=== PATIENT | male | born 1990 | race Caucasian/White ===

== ENCOUNTER 2017-05-16 16:04 | Emergency (ER) | payer SELFPAY ==
[2017-05-16 16:50] VITALS: BP 105/67
--- NOTE | 2017-05-16 17:07 | ER Document Report ---
ED Hand/Wrist Injury - General Chief Complaint: Thumb Injury Stated Complaint: LEFT THUMB INJURY Time Seen by Provider: 05/16/17 16:57 Notes: 26 yo male cute tip of left thumb with hook knife just prior to arrival. bleeding is controlled. tetnus is UTD. last tetnus 4 yrs ago. no tendon damage. no nail damage TRAVEL OUTSIDE OF THE [place] IN LAST 30 DAYS: No - HPI Injury to: Thumb - left Onset: Just prior to arrival Where: Work Quality of pain: No pain - Related Data Allergies/Adverse Reactions: No Known Allergies Allergy (Verified 05/16/17 16:42) Past Medical History - General Information source: Patient - Social History Smoking Status: Current Every Day Smoker Frequency of alcohol use: None Drug Abuse: None Lives with: Family Family History: None, Malignancy Patient has suicidal ideation: No Patient has homicidal ideation: No - Medical History Medical History: Negative Renal/ Medical History: Denies: Hx Peritoneal Dialysis Skin Medical History: Reports Hx Cellulitis, Reports Hx MRSA Past Surgical History: Reports: Hx Appendectomy - Immunizations Immunizations up to date: Yes Hx Diphtheria, Pertussis, Tetanus Vaccination: Yes Review of Systems - Review of Systems Constitutional: No symptoms reported EENT: No symptoms reported Cardiovascular: No symptoms reported Respiratory: No symptoms reported Gastrointestinal: No symptoms reported Genitourinary: No symptoms reported Male Genitourinary: No symptoms reported Musculoskeletal: No symptoms reported Skin: See HPI Hematologic/Lymphatic: No symptoms reported Neurological/Psychological: No symptoms reported Physical Exam - Vital signs Vitals: Temp Pulse Resp BP Pulse Ox 98.0 F 73 16 105/67 100 05/16/17 16:44 05/16/17 16:44 05/16/17 16:44 05/16/17 16:44 05/16/17 16:44 Interpretation: Normal - General General appearance: Appears well, Alert - HEENT Head: Normocephalic, Atraumatic Eyes: Normal Pupils: PERRL - Respiratory Respiratory status: No respiratory distress Chest status: Nontender Breath sounds: Normal Chest palpation: Normal - Cardiovascular Rhythm: Regular Heart sounds: Normal auscultation Murmur: No - Abdominal Inspection: Normal Distension: No distension Bowel sounds: Normal Tenderness: Nontender Organomegaly: No organomegaly - Back Back: Normal, Nontender - Extremities General upper extremity: Normal inspection, Nontender, Normal color, Normal ROM , Normal temperature General lower extremity: Normal inspection, Nontender, Normal color, Normal ROM , Normal temperature, Normal weight bearing. No: Jose's sign - Neurological Neuro grossly intact: Yes Cognition: Normal Orientation: AAOx4 [place] Coma Scale Eye Opening: Spontaneous [place] Coma Scale Verbal: Oriented [place] Coma Scale Motor: Obeys Commands [place] Coma Scale Total: 15 Speech: Normal Motor strength normal: LUE, RUE, LLE, RLE Sensory: Normal - Psychological Associated symptoms: Normal affect, Normal mood - Skin Skin Temperature: Warm Skin Moisture: Dry Skin Color: Normal Skin irregularity: Laceration Course - Vital Signs Vital signs: Temp Pulse Resp BP Pulse Ox 98.0 F 73 16 105/67 100 05/16/17 16:44 05/16/17 16:44 05/16/17 16:44 05/16/17 16:44 05/16/17 16:44 Procedures - Immobilization left thumb Immobilizer type: Finger protection Performed by: PCT Post-Proc Neuro Vasc Exam: Normal Alignment checked and good: Yes - Laceration/Wound Repair left thumb Wound length (cm): 2 Wound's Depth, Shape: Flap Wound explored: Clean Wound Debrided: Minimal Wound Repaired With: Steri-strips, Dermabond Discharge - Discharge Clinical Impression: Laceration of left thumb Qualifiers: Encounter type: initial encounter Damage to nail status: without damage Foreign body presence: without foreign body Qualified Code(s): S61.012A - Laceration without foreign body of left thumb without damage to nail, initial encounter Condition: Stable Disposition: HOME, SELF-CARE Instructions: Skin Adhesive Closure ([facility]), Care of Steri-Strip Closure ([facility]) Additional Instructions: keep wound clean and dry dermabond and steri strips will peel off in 5-7 days watch for s/s infection wear thumb cap splint for comfort and protection
[2017-05-16] MEDS ORDERED: HYDROCODONE/ACETAMINOPHEN 5-325 MG TABLET PO ONE (17:36)
== END 2017-05-16 17:46 | disposition home or self-care (01) ==
LOC: ER 16:04
DX: S61.012A Laceration without foreign body of left thumb without damage to nail, initial encounter (principal); W26.0XXA Contact with knife, initial encounter; Y99.0 Civilian activity done for income or pay; F17.200 Nicotine dependence, unspecified, uncomplicated; Z86.14 Personal history of Methicillin resistant Staphylococcus aureus infection
CPT/HCPCS: 99282

== ENCOUNTER 2017-06-17 19:32 | Emergency (ER) | payer SELFPAY ==
[2017-06-17] MEDS ORDERED: DIPH/PERTUSS(ACELL)/TETANUS VAC/PF 0.5 ML SYR (>=10YO) IM ONE (19:49)
[2017-06-17] MEDS ORDERED: LIDOCAINE 1% INJ-PF (10 MG/ML) 30 ML SDV INJ ONE (19:49)
--- NOTE | 2017-06-17 19:51 | ER Document Report ---
ED General - General Chief Complaint: Laceration Stated Complaint: FINGER LACERATION Time Seen by Provider: 06/17/17 19:38 Mode of Arrival: Ambulatory Information source: Patient Notes: 26-year-old male presents with complaints of laceration and second digit on the lateral aspect with a new razor blade. Tetanus not up-to-date TRAVEL OUTSIDE OF THE [place] IN LAST 30 DAYS: No - HPI Onset: Just prior to arrival Onset/Duration: Sudden Quality of pain: Sharp Severity: Mild Pain Level: 1 Associated symptoms: None Exacerbated by: Movement Relieved by: Denies Similar symptoms previously: Yes Recently seen / treated by doctor: No - Related Data Allergies/Adverse Reactions: No Known Allergies Allergy (Verified 06/17/17 19:42) Past Medical History - Social History Smoking Status: Current Every Day Smoker Cigarette use (# per day): Yes Chew tobacco use (# tins/day): No Smoking Education Provided: No Family History: None, Malignancy Patient has suicidal ideation: No Patient has homicidal ideation: No Renal/ Medical History: Denies: Hx Peritoneal Dialysis Skin Medical History: Reports Hx Cellulitis, Reports Hx MRSA Past Surgical History: Reports: Hx Appendectomy - Immunizations Immunizations up to date: Yes Hx Diphtheria, Pertussis, Tetanus Vaccination: Yes Review of Systems - Review of Systems Notes: REVIEW OF SYSTEMS: CONSTITUTIONAL : Denies fever, chills, or sweats. Denies recent illness. EENT: Denies eye, ear, throat, or mouth pain or symptoms. Denies nasal or sinus congestion or discharge. Denies throat, tongue, or mouth swelling or difficulty swallowing. CARDIOVASCULAR: Denies chest pain. Denies palpitations or racing or irregular heart beat. Denies ankle edema. RESPIRATORY: Denies cough, cold, or chest congestion. Denies shortness of breath, difficulty breathing, or wheezing. GASTROINTESTINAL: Denies abdominal pain or distention. Denies nausea, vomiting , or diarrhea. Denies blood in vomitus, stools, or per rectum. Denies black, tarry stools. Denies constipation. GENITOURINARY: Denies difficulty urinating, painful urination, burning, frequency, blood in urine, or discharge. MUSCULOSKELETAL: Denies back or neck pain or stiffness. Denies joint pain or swelling. SKIN: Admits to finger laceration HEMATOLOGIC : Denies easy bruising or bleeding. LYMPHATIC: Denies swollen, enlarged glands. NEUROLOGICAL: Denies confusion or altered mental status. Denies passing out or loss of consciousness. Denies dizziness or lightheadedness. Denies headache. Denies weakness or paralysis or loss of use of either side. Denies problems with gait or speech. Denies sensory loss, numbness, or tingling. Denies seizures. PSYCHIATRIC: Denies anxiety or stress. Denies depression, suicidal ideation, or homicidal ideation. ALL OTHER SYSTEMS REVIEWED AND NEGATIVE. Dictation was performed using [employer] voice recognition software PHYSICAL EXAMINATION: GENERAL: Well-appearing, well-nourished and in no acute distress. HEAD: Atraumatic, normocephalic. EYES: Pupils equal round and reactive to light, extraocular movements intact, sclera anicteric, conjunctiva are normal. ENT: Nares patent, oropharynx clear without exudates. Moist mucous membranes. NECK: Normal range of motion, supple without lymphadenopathy LUNGS: Breath sounds clear to auscultation bilaterally and equal. No wheezes rales or rhonchi. HEART: Regular rate and rhythm without murmurs ABDOMEN: Soft, nontender, nondistended abdomen. No guarding, no rebound. No masses appreciated. Musculoskeletal: Normal range of motion, no pitting or edema. No cyanosis. NEUROLOGICAL: Cranial nerves grossly intact. Normal speech, normal gait. Normal sensory, motor exams PSYCH: Normal mood, normal affect. SKIN: 6 cm laceration of second digit left hand lateral aspect with no involvement of joint space there is no tendon involvement full range of motion of the finger good sensation with tenderness at the distal aspect there was a small venous bleed noted, good cap refill Physical Exam - Vital signs Vitals: Temp Pulse Resp BP Pulse Ox 97.7 F 72 18 126/77 H 100 06/17/17 19:37 06/17/17 19:37 06/17/17 19:37 06/17/17 19:37 06/17/17 19:37 Course - Re-evaluation Re-evalutation: 06/17/17 20:45 After a digital nerve block was performed area was explored small venous bleed was noted I placed 6 sutures with no complications after cleaning extensively. A splint was placed very strict return precautions have been provided as well as antibiotics and tetanus update After performing a Medical Screening Examination, I estimate there is LOW risk for OPEN FRACTURE, COMPARTMENT SYNDROME, TENDON RUPTURE, ACUTE NEUROVASCULAR INJURY, or RETAINED FOREIGN BODY, thus I consider the discharge disposition reasonable. Also, there is no evidence or peritonitis, sepsis, or toxicity. I have reevaluated this patient multiple times and no significant life threatening changes are noted. The patient and I have discussed the diagnosis and risks, and we agree with discharging home with close follow-up with the understanding that symptoms and presentations can change. We also discussed returning to the Emergency Department immediately if new or worsening symptoms occur. We have discussed the symptoms which are most concerning (e.g., changing or worsening pain, fever, numbness, weakness, cool or painful digits) that necessitate immediate return. - Vital Signs Vital signs: Temp Pulse Resp BP Pulse Ox 97.7 F 72 18 126/77 H 100 06/17/17 19:37 06/17/17 19:37 06/17/17 19:37 06/17/17 19:37 06/17/17 19:37 Procedures - Laceration/Wound Repair Left Hand 2nd digit Time completed: 20:45 Wound length (cm): 6 Wound's Depth, Shape: Into muscle, Irregular, Flap, Stellate Laceration pre-procedure: Sterile PPE donned, Sterile drapes applied, Shur- Clens applied Anesthetic type: 1% Lidocaine Volume Anesthetic (mLs): 10 Wound explored: Clean, No foreign body removed Irrigated w/ Saline (mLs): 2,000 Wound Debrided: Moderate Wound Repaired With: Sutures Suture Size/Type: 5:0, Ethilon Number of Sutures: 6 Layer Closure?: No Post-procedure wound care: Sterile dressing applied, Splint applied Post-procedure NV exam normal: Yes Complications: No - Additional Procedures digital nerve block Time performed: 20:34 - using 10 cc of lido without epi with complete resolution Discharge - Discharge Clinical Impression: Finger laceration Qualifiers: Encounter type: initial encounter Finger: index finger Damage to nail status: without damage Foreign body presence: without foreign body Laterality: right Qualified Code(s): S61.210A - Laceration without foreign body of right index finger without damage to nail, initial encounter Condition: Stable Disposition: HOME, SELF-CARE Instructions: Laceration Care ([facility]), Prophylactic Antibiotic ([facility]), Soap Cleansing ([facility]), Tetanus Immunization Given ([facility]) Prescriptions: Cephalexin Monohydrate [Keflex 500 mg Capsule] 500 mg PO Q6H 10 Days capsule Hydrocodone/Acetaminophen [[place] 5-325 mg Tablet] 1 tab PO Q6 #10 tablet Referrals: ABUNDIO PARIKH DO [ACTIVE STAFF] - Follow up in 1 week
[2017-06-17 21:10] VITALS: BP 113/68
== END 2017-06-17 21:09 | disposition home or self-care (01) ==
LOC: ER 19:32
PROC: 0HQGXZZ Repair Left Hand Skin, External Approach (ICD-10-PCS; principal; 2017-06-17)
DX: S61.211A Laceration without foreign body of left index finger without damage to nail, initial encounter (principal); W45.8XXA Other foreign body or object entering through skin, initial encounter; F17.210 Nicotine dependence, cigarettes, uncomplicated; Z23 Encounter for immunization; Z86.14 Personal history of Methicillin resistant Staphylococcus aureus infection
CPT/HCPCS: 99283; 90471; 90715; 12002; J3490

== ENCOUNTER 2017-08-12 17:15 | Emergency (ER) | payer SELFPAY ==
[2017-08-12] MEDS ORDERED: HYDROCODONE/ACETAMINOPHEN 5-325 MG TABLET PO ONE (18:58)
--- NOTE | 2017-08-12 19:04 | ER Document Report ---
ED Extremity Problem, Lower - General Chief Complaint: Foot Pain Stated Complaint: FEET PAIN Time Seen by Provider: 08/12/17 18:47 Mode of Arrival: Ambulatory Information source: Patient, Relative Notes: Patient is a 27-year-old male comes emergency room with his complaining of bilateral feet pain. 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 He states he is tried Gold Domínguez powder without any resolve he has tried changing shoes again with no resolved. Patient states that he gets his body he escape through his feet more than anywhere else. indicates the patient sleeps with socks on at night as well. He does admit to having very wet environment that he works in. TRAVEL OUTSIDE OF THE [place] IN LAST 30 DAYS: No - HPI Patient complains to provider of: Altered sensation, Pain Location: Foot - Bilat Where: Home, Work Onset/Duration: Gradual, Persistent, Worse Quality of pain: Burning, Throbbing Severity: Moderate Pain Level: 3 Context: Prolonged pressure on ext, Other - sweat and stay wet in shoes/boots Relieved by: Rest Notes: As stated patient works costruction and feet stay wet - Related Data Allergies/Adverse Reactions: No Known Allergies Allergy (Verified 06/17/17 19:42) Past Medical History - General Information source: Patient, Relative - Social History Smoking Status: Unknown if Ever Smoked Cigarette use (# per day): No Chew tobacco use (# tins/day): No Smoking Education Provided: No Frequency of alcohol use: Rare Drug Abuse: None 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 with: Family Family History: Reviewed & Not Pertinent, Malignancy Patient has suicidal ideation: No Patient has homicidal ideation: No Renal/ Medical History: Denies: Hx Peritoneal Dialysis Skin Medical History: Reports Hx Cellulitis, Reports Hx MRSA Past Surgical History: Reports: Hx Appendectomy - Immunizations Immunizations up to date: Yes Hx Diphtheria, Pertussis, Tetanus Vaccination: Yes Review of Systems - Review of Systems Constitutional: No symptoms reported EENT: No symptoms reported Cardiovascular: No symptoms reported Respiratory: No symptoms reported Gastrointestinal: No symptoms reported Genitourinary: No symptoms reported Male Genitourinary: No symptoms reported Musculoskeletal: No symptoms reported Skin: Change in color Hematologic/Lymphatic: No symptoms reported Neurological/Psychological: No symptoms reported -: Yes All other systems reviewed and negative Physical Exam - Vital signs Vitals: Temp Pulse Resp BP Pulse Ox 98.4 F 62 18 127/72 H 100 08/12/17 17:19 08/12/17 17:19 08/12/17 17:19 08/12/17 17:19 08/12/17 17:19 Interpretation: Normal - General General appearance: Other - Uncomfortable - Respiratory Respiratory status: No respiratory distress Chest status: Nontender Breath sounds: Normal. No: Decreased air movement, Nonproductive cough, Productive cough, Rales, Rhonchi, Stridor, Wheezing, Other - Cardiovascular Rhythm: Regular Heart sounds: Normal auscultation Murmur: No - Extremities General lower extremity: Tender, Normal ROM, Normal weight bearing Foot: Other - Examination patient's feet show them to be raw in appearance. There is a discoloration of the thick skin/callus of the heel and ball of the foot towards transparent kind of presentation then there is a severe deep and reddened area that is very painful to touch that has a distinct smell to it of the presentation of athlete's foot/fungal infection/trench foot. Course - Vital Signs Vital signs: Temp Pulse Resp BP Pulse Ox 97.3 F 70 18 125/72 99 08/12/17 19:36 08/12/17 19:36 08/12/17 19:36 08/12/17 19:36 08/12/17 19:36 - Transfer of Care Notes: 08/12/17 19:[address] Copeland also reviewed patient's feet and agrees that this is a fungal kind of a presentation a athlete's foot presentation. This is as stated athlete 's foot at its worst. Dr. Copeland impressed upon the patient that he must keep his feet airing out and change of dry socks and we could treat it with some powders or creams and a antibiotic and pain medication. But he also told him that if he does not get these open to air then nothing is going to work. Discharge - Discharge Clinical Impression: Athletes foot Qualifiers: Laterality: bilateral Qualified Code(s): B35.3 - Tinea pedis Condition: Good Disposition: HOME, SELF-CARE Instructions: Ringworm (Tinea Corporis) ([facility]) Additional Instructions: Highly important that he not wear the same shoes day in and day out. Get use of a couple different pair shoes alternate them about every 3-4 days. This allows that they dry out equally. Change your socks 2-3 times a day. Let your feet air out as much as possible. When not at work barefoot with the feet propped up airing out. This time the best medications for this are over-the- counter Lamisil cream/sprays/antifungal powders that you can buy. I will do some pain medication for the discomfort return to ER for any concerns or problems. Should the discomfort continue on you will need to see a associate dentist. He may contact his primary care provider to see who they recommend in your area. You can get a can of either Lamisil spray or anti fungal powders over-the- counter at any other pharmacies. Use as directed. Should you have any concerns or problems return to ER for a recheck. Highly suggest though that you do follow-up with a associate dentist for probably long-term treatment. Prescriptions: Hydrocodone/Acetaminophen [[place] 7.5-325 Tablet] 1 each PO Q6 #20 tablet Forms: Elevated Blood Pressure, Return to Work
[2017-08-12 19:39] VITALS: BP 125/72
== END 2017-08-12 19:36 | disposition home or self-care (01) ==
LOC: ER 17:15
DX: B35.3 Tinea pedis (principal); Z86.14 Personal history of Methicillin resistant Staphylococcus aureus infection
CPT/HCPCS: 99283

== ENCOUNTER 2018-04-02 06:22 | Emergency (ER) | payer SELFPAY ==
[2018-04-02 06:42] VITALS: BP 127/71
--- NOTE | 2018-04-02 07:18 | ER Document Report ---
ED Extremity Problem, Lower - General Chief Complaint: Foot Pain Stated Complaint: FOOT PAIN Time Seen by Provider: 04/02/18 07:15 Mode of Arrival: Ambulatory Information source: Patient Notes: Patient is a 27-year-old male who presents to the ER today for bilateral foot pain and rash times approximately 3 days. Patient states that he has been seen for this previously and was diagnosed with a "fungal infection." Patient states that he has been using fungal [id number] cream that has not been helping as well as foot powder that has not been helping. Patient works outside all day long and is on his feet all the time, wears tennis shoes and tall black socks. Patient states he is not able to change the shoes and socks daily until he goes home. Patient states he is at least working for 12 hours at a time. He denies any drainage from the rash. TRAVEL OUTSIDE OF THE [place] IN LAST 30 DAYS: No - Related Data Allergies/Adverse Reactions: No Known Allergies Allergy (Verified 04/02/18 07:26) Past Medical History - General Information source: Patient - Social History Smoking Status: Unknown if Ever Smoked Family History: Reviewed & Not Pertinent, Malignancy Renal/ Medical History: Denies: Hx Peritoneal Dialysis Skin Medical History: Reports Hx Cellulitis, Reports Hx MRSA Past Surgical History: Reports: Hx Appendectomy - Immunizations Immunizations up to date: Yes Hx Diphtheria, Pertussis, Tetanus Vaccination: Yes Review of Systems - Review of Systems Constitutional: No symptoms reported EENT: No symptoms reported Cardiovascular: No symptoms reported Respiratory: No symptoms reported Gastrointestinal: No symptoms reported Genitourinary: No symptoms reported Male Genitourinary: No symptoms reported Musculoskeletal: No symptoms reported Skin: See HPI Hematologic/Lymphatic: No symptoms reported Neurological/Psychological: No symptoms reported Physical Exam - Vital signs Vitals: Temp Pulse Resp BP Pulse Ox 98.6 F 83 16 127/71 H 98 04/02/18 06:39 04/02/18 06:39 04/02/18 06:39 04/02/18 06:39 04/02/18 06:39 - Notes Notes: PHYSICAL EXAMINATION: GENERAL: Well-appearing and in no acute distress. HEAD: Atraumatic, normocephalic. EYES: Pupils equal round and reactive to light, extraocular movements intact, sclera anicteric, conjunctiva are normal. NECK: Normal range of motion, supple without lymphadenopathy LUNGS: CTAB and equal. No wheezes rales or rhonchi. HEART: Regular rate and rhythm without murmurs EXTREMITIES: Normal range of motion, no pitting edema. No cyanosis. NEUROLOGICAL: Cranial nerves grossly intact. Normal sensory/motor exams. PSYCH: Normal mood, normal affect. SKIN: Warm, Dry, normal turgor, bilateral toes to both feet with erythema and patches, wet skin, moist Course - Vital Signs Vital signs: Temp Pulse Resp BP Pulse Ox 98.6 F 83 16 127/71 H 98 04/02/18 06:39 04/02/18 06:39 04/02/18 06:39 04/02/18 06:39 04/02/18 06:39 Discharge - Discharge Clinical Impression: Athletes foot Qualifiers: Laterality: bilateral Qualified Code(s): B35.3 - Tinea pedis Condition: Stable Disposition: HOME, SELF-CARE Instructions: Athletes Foot ([facility]) Additional Instructions: Use GOLD MOTA athlete's foot powder to keep feet dry. Return immediately for any new or worsening symptoms. Follow up with primary care provider, call tomorrow to make followup appointment. You are going to have to buy better shoes that are more breathable and preferably White Socks, specifically if they say that they are breathable as well. Prescriptions: Clotrimazole 45 gm TP BID #2 cream..g. Forms: Return to Work
== END 2018-04-02 07:25 | disposition home or self-care (01) ==
LOC: ER 06:22
DX: B35.3 Tinea pedis (principal); Z86.14 Personal history of Methicillin resistant Staphylococcus aureus infection
CPT/HCPCS: 99283

== ENCOUNTER 2019-05-15 01:45 | Emergency (ER) | payer SELFPAY ==
--- NOTE | 2019-05-15 02:26 | ER Document Report ---
ED Substance Abuse / Acc. OD - General Mode of Arrival: Wheelchair Information source: Patient, Relative TRAVEL OUTSIDE OF THE [place] IN LAST 30 DAYS: No <CATRINA REARDON - Last Filed: 05/15/19 04:19> <RADHASHWETA - Last Filed: 05/16/19 02:10> - General Chief Complaint: Possible Overdose Stated Complaint: POSSIBLE OVERDOSE Time Seen by Provider: 05/15/19 02:06 Notes: This 28-year-old male patient brought to emergency room for excessive drowsiness after taking some Xanax he purchased off the street. By history he takes Xanax about 2 times per week. He was feeling anxious and bought a 2 mg Xanax tablet. He took one half of the tablet about 1 AM, got very drowsy about 15 minutes later. Reportedly did not take any other medications. He is on Suboxone since September 2018 for heroin addiction, but has not taken any in the past 2 days. He has been opiate clean since March 2019. [facility] and Celexa. (CATRINA REARDON) - Related Data Allergies/Adverse Reactions: No Known Allergies Allergy (Verified 04/02/18 07:26) Past Medical History - General Information source: Patient, Relative - Social History Smoking Status: Current Every Day Smoker Cigarette use (# per day): Yes Chew tobacco use (# tins/day): No Smoking Education Provided: No Frequency of alcohol use: None Drug Abuse: Heroin, Prescription drugs Occupation: Instruction Lives with: Spouse/Significant other Family History: Reviewed & Not Pertinent, Malignancy Skin Medical History: Reports Hx Cellulitis, Reports Hx MRSA Psychiatric Medical History: Reports: Hx Depression Past Surgical History: Reports: Hx Appendectomy, Hx Orthopedic Surgery - Knee surgery - Immunizations Immunizations up to date: Yes Hx Diphtheria, Pertussis, Tetanus Vaccination: Yes <CATRINA REARDON - Last Filed: 05/15/19 04:19> Review of Systems - Review of Systems Constitutional: No symptoms reported EENT: No symptoms reported Cardiovascular: No symptoms reported Respiratory: No symptoms reported Gastrointestinal: No symptoms reported Genitourinary: No symptoms reported Musculoskeletal: No symptoms reported Skin: No symptoms reported Hematologic/Lymphatic: No symptoms reported Neurological/Psychological: Depression <CATRINA REARDON - Last Filed: 05/15/19 04:19> Physical Exam - Vital signs Interpretation: Normal - General General appearance: Other - Patient is drowsy, he is alert and oriented, In distress: None - HEENT Head: Normocephalic, Atraumatic Eyes: Normal Pupils: PERRL - Pupils are quite small and a little reactive Mucous membranes: Normal Neck: Normal - Respiratory Respiratory status: No respiratory distress Breath sounds: Normal - Cardiovascular Rhythm: Regular Heart sounds: Normal auscultation Murmur: No - Abdominal Inspection: Normal Bowel sounds: Normal Tenderness: Nontender - Back Back: Normal - Extremities General upper extremity: Normal inspection General lower extremity: Normal inspection - Neurological Neuro grossly intact: Yes - Psychological Associated symptoms: Excessive sleeping - Patient is quite drowsy and will fall asleep if not stimulated. - Skin Skin Temperature: Warm Skin Moisture: Dry Skin Color: Normal <CATRINA REARDON - Last Filed: 05/15/19 04:19> - Vital signs Vitals: Temp Pulse Resp BP Pulse Ox 97.6 F 96 14 119/73 95 05/15/19 01:52 05/15/19 01:52 05/15/19 01:52 05/15/19 01:52 05/15/19 01:52 Course - Laboratory Result Diagrams: 05/15/19 02:20 05/15/19 02:20 - EKG Interpretation by Nv EKG shows normal: Sinus rhythm, [place], Intervals, ST-T Waves. abnormal: QRS Complexes - Inferior Q's, probably normal variation Rate: Normal - 83 Rhythm: NSR - Transfer of Care Care transferred to following provider: Dr. Garcia <CATRINA REARDON - Last Filed: 05/15/19 04:19> - Laboratory Result Diagrams: 05/15/19 02:20 05/15/19 02:20 <LEIF GARCIA - Last Filed: 05/16/19 02:10> - Re-evaluation Re-evalutation: 05/15/19 04:43 Laboratory 05/15/19 05/15/19 05/15/19 02:20 02:20 02:20 WBC 10.3 RBC 4.47 Hgb 13.3 L Hct 39.9 MCV 89 MCH 29.8 MCHC 33.5 RDW 13.8 Plt Count 697 H Lymph % (Auto) 28.5 [place] % (Auto) 11.4 Eos % (Auto) 1.8 Baso % (Auto) 0.4 Absolute Neuts (auto) 6.0 Absolute Lymphs (auto) 2.9 Absolute Monos (auto) 1.2 Absolute Eos (auto) 0.2 Absolute Basos (auto) 0.0 Seg Neutrophils % 57.9 Sodium 139.7 Potassium 4.3 Chloride 101 Carbon Dioxide 27 Anion Gap 12 BUN 23 H Creatinine 0.92 Est GFR ( Amer) > 60 Est GFR (MDRD) Non-Af > 60 Glucose 98 Calcium 10.0 Total Bilirubin 0.9 Direct Bilirubin 0.5 H Neonat Total Bilirubin Not Reportable Neonat Direct Bilirubin Not Reportable Neonat Indirect Bili Not Reportable AST 51 ALT 76 Alkaline Phosphatase 81 Creatine Kinase 96 Troponin I < 0.012 Total Protein 8.0 Albumin 4.4 Urine Color Urine Appearance Urine pH Ur Specific [place] Urine Protein Urine Glucose (UA) Urine Ketones Urine Blood Urine Nitrite Urine Bilirubin Urine Urobilinogen Ur Leukocyte Esterase Urine WBC (Auto) Urine RBC (Auto) U Hyaline Cast (Auto) Calcium Oxalate Cr Auto Urine Mucus (Auto) Urine Ascorbic Acid Urine Opiates Screen Urine Methadone Screen Ur Barbiturates Screen Ur Phencyclidine Scrn Ur Amphetamines Screen U Benzodiazepines Scrn Urine Cocaine Screen U Marijuana (THC) Screen 05/15/19 05/15/19 03:15 03:15 WBC RBC Hgb Hct MCV MCH MCHC RDW Plt Count Lymph % (Auto) [place] % (Auto) Eos % (Auto) Baso % (Auto) Absolute Neuts (auto) Absolute Lymphs (auto) Absolute Monos (auto) Absolute Eos (auto) Absolute Basos (auto) Seg Neutrophils % Sodium Potassium Chloride Carbon Dioxide Anion Gap BUN Creatinine Est GFR ( Amer) Est GFR (MDRD) Non-Af Glucose Calcium Total Bilirubin Direct Bilirubin Neonat Total Bilirubin Neonat Direct Bilirubin Neonat Indirect Bili AST ALT Alkaline Phosphatase Creatine Kinase Troponin I Total Protein Albumin Urine Color DARK YELLOW Urine Appearance SLIGHTLY-CLOUDY Urine pH 5.0 Ur Specific [place] 1.031 Urine Protein 30 H Urine Glucose (UA) NEGATIVE Urine Ketones NEGATIVE Urine Blood NEGATIVE Urine Nitrite NEGATIVE Urine Bilirubin SMALL H Urine Urobilinogen 4.0 H Ur Leukocyte Esterase NEGATIVE Urine WBC (Auto) 3 Urine RBC (Auto) 7 U Hyaline Cast (Auto) 1 Calcium Oxalate Cr Auto FEW Urine Mucus (Auto) MANY Urine Ascorbic Acid NEGATIVE Urine Opiates Screen NEGATIVE Urine Methadone Screen NEGATIVE Ur Barbiturates Screen NEGATIVE Ur Phencyclidine Scrn NEGATIVE Ur Amphetamines Screen U Benzodiazepines Scrn UNCONFIRMED POSITIVE Urine Cocaine Screen NEGATIVE U Marijuana (THC) Screen NEGATIVE 05/15/19 04:44 Patient received in signout. On reevaluation he is awake, alert and able to ambulate. Urine tox screen is positive for benzodiazepine and amphetamines. (LEIF GARCIA) - Vital Signs Vital signs: Temp Pulse Resp BP Pulse Ox 98.2 F 72 14 130/69 H 100 05/15/19 04:47 05/15/19 04:47 05/15/19 04:47 05/15/19 04:47 05/15/19 03:01 - Laboratory Laboratory results interpreted by me: 05/15/19 05/15/19 05/15/19 02:20 02:20 03:15 Hgb 13.3 L Plt Count 697 H BUN 23 H Direct Bilirubin 0.5 H Urine Protein 30 H Urine Bilirubin SMALL H Urine Urobilinogen 4.0 H - Transfer of Care Notes: 05/15/19 04:20 Patient pending UDS. He is receiving IV fluids. He should be able to be safely discharged after his IV fluids are in and he is able to ambulate. (CATRINA REARDON) Discharge <CATRINA REARDON - Last Filed: 05/15/19 04:19> <LEIF GARCIA - Last Filed: 05/16/19 02:10> - Discharge Clinical Impression: Methamphetamine use, Benzodiazepine abuse Overdose Qualifiers: Encounter type: initial encounter Injury intent: accidental or unintentional Qualified Code(s): T50.901A - Poisoning by unspecified drugs, medicaments and biological substances, accidental (unintentional), initial encounter Condition: Stable Disposition: HOME, SELF-CARE Instructions: Instructions for Home Care Following a Drug Overdose ([facility]), Overdose (H)
[2019-05-15] MEDS ORDERED: NORMAL SALINE 1000 ML 1,000 ML IV ONE ×2 (02:28→03:23)
[2019-05-15 02:32] LABS: ABSOLUTE EOSINOPHILS # (AUTO) 0.2 10^3/uL (0.0-0.6); ABSOLUTE LYMPHOCYTES (AUTO) 2.9 10^3/uL (0.5-4.7); ABSOLUTE MONOCYTES (AUTO) 1.2 10^3/uL (0.1-1.4); BASOPHILS % (AUTO) 0.4 % (0-2); EOSINOPHILS % (AUTO) 1.8 % (0-6); HEMATOCRIT 39.9 % (37.9-51.0); HEMOGLOBIN 13.3 g/dL (13.5-17.0); LYMPHOCYTES % (AUTO) 28.5 % (13-45); MEAN CORPUSCULAR HEMOGLOBIN 29.8 pg (27.0-33.4); MEAN CORPUSCULAR HGB CONC 33.5 g/dL (32.0-36.0); MEAN CORPUSCULAR VOLUME 89 fl (80-97); MONOCYTES % (AUTO) 11.4 % (3-13); PLATELET COUNT 697 10^3/uL (150-450); RED BLOOD COUNT 4.47 10^6/uL (4.35-5.55); RED CELL DISTRIBUTION WIDTH 13.8 % (11.5-14.0); SEGMENTED NEUTROPHILS % (AUTO) 57.9 % (42-78); TOTAL CELLS COUNTED % (AUTO) 100 %; WHITE BLOOD COUNT 10.3 10^3/uL (4.0-10.5)
[2019-05-15 02:51] LABS: ALBUMIN 4.4 g/dL (3.5-5.0); ALKALINE PHOSPHATASE 81 U/L (38-126); ANION GAP 12 (5-19); ASPARTATE AMINO TRANSFERASE 51 U/L (17-59); BILIRUBIN,DIRECT 0.5 mg/dL (0.0-0.4); BILIRUBIN,TOTAL 0.9 mg/dL (0.2-1.3); BLOOD UREA NITROGEN 23 mg/dL (7-20); CARBON DIOXIDE 27 mmol/L (22-30); CHLORIDE 101 mmol/L (98-107); CREATINE KINASE 96 U/L (55-170); GLUCOSE 98 mg/dL (75-110); POTASSIUM 4.3 mmol/L (3.6-5.0)
[2019-05-15 04:26] LABS: APPEARANCE,URINE SLIGHTLY-CLOUDY; BILIRUBIN,URINE SMALL (NEGATIVE); CALCIUM OXALATE CRYSTALS,URINE FEW /HPF; GLUCOSE, URINE NEGATIVE (NEGATIVE); KETONES,URINE NEGATIVE (NEGATIVE); LEUKOCYTE ESTERASE,URINE NEGATIVE (NEGATIVE); NITRITE,URINE NEGATIVE (NEGATIVE); PROTEIN,URINE 30 mg/dL (NEGATIVE); URINE SPECIFIC GRAVITY 1.031
[2019-05-15 04:27] LABS: COLOR,URINE DARK YELLOW
[2019-05-15 04:33] LABS: URINE BARBITURATES SCREEN NEGATIVE; URINE COCAINE SCREEN NEGATIVE; URINE MARIJUANA (THC) SCREEN NEGATIVE; URINE METHADONE SCREEN NEGATIVE; URINE PHENCYCLIDINE SCREEN NEGATIVE
[2019-05-15 04:40] LABS: URINE BENZODIAZEPINES SCREEN UNCONFIRMED POSITIVE
[2019-05-15 04:48] VITALS: BP 130/69
--- NOTE | 2019-05-15 09:04 | EKG REPORT ---
SEVERITY:- BORDERLINE ECG - SINUS RHYTHM BORDERLINE Q WAVES IN INFERIOR LEADS INFERIOR Q WAVES, PROBABLY NORMAL VARIATION : Confirmed by: Bri Bond MD 15-May-2019 09:03:45
== END 2019-05-15 05:00 | disposition home or self-care (01) ==
LOC: ER 01:45
DX: T42.4X1A Poisoning by benzodiazepines, accidental (unintentional), initial encounter (principal); F11.20 Opioid dependence, uncomplicated; F32.9 Major depressive disorder, single episode, unspecified; Z79.899 Other long term (current) drug therapy; F17.210 Nicotine dependence, cigarettes, uncomplicated
CPT/HCPCS: 93005; 36415; 82550; 85025; 80053; 81001; 84484; 80307; 93010; J7030; 96360; 96361; 99284